=== PATIENT | female | born 1985 | race Caucasian/White ===

== ENCOUNTER 2018-02-10 17:25 | Inpatient (IN) ==
--- NOTE | 2018-02-10 18:54 | ED ---
History of Present Illness Primary Care Physician: NOT REQUIRED Chief Complaint: LOF History of Present Illness: Pt is a 32y/o G1 @ 38.5wks. She has PNC with Dr. Hernandez. She reports ROM at 16:15 today. Ctx started en route to hospital. No VB. +FM. She denies complications this preg. Weeks Gestation:: 38 Para: 0 : 1 - Inpatient Certification I certify that the inpatient services were ordered in accordance with Medicare regulations governing the order. This includes certification that hospital inpatient services are reasonable and necessary and in the case of services not specified as inpatient-only under 42 CFR 419.22(n), that they are appropriately provided as inpatient services in accordance to with the 2-midnight benchmark under 43 CFR 412.3(e) Review of Systems All other systems reviewed negative except as stated in HPI PMFSH - History History Provided By: Patient - Surgical History Surgical History: Surgical History (Last Updated 02/10/18 @ 18:51 by Dick Muñoz MD) History of breast augmentation - Tobacco History Second Hand Smoke Exposure: No Tobacco Use In Past 30 Days: No Smoking Status: Former smoker - Alcohol History How Often Do You Have a Drink Containing Alcohol: 2 to 4 times a month - Substance Use History Substance History: No History of Abuse - Travel History Recent Travel in the [place] Within the Last 8 Weeks: No Recent Travel Out of the Country Within the Last 8 Weeks: No - Immunization History Tetanus Immunization: Unsure Hx Influenza Vaccine This Season: No Medications and Allergies Active Medications: Active Medications Sodium Chloride (Ns Flush) 2 ml IV.FLUSH BID JANIA Sodium Chloride (Ns Flush) 2 ml IV.FLUSH PRN PRN PRN Reason: FLUSH AFTER USING IV ACCESS Allergies Allergy/AdvReac Type Severity Reaction Status Date / Time No Known Allergies Allergy Verified 02/10/18 17:54 Home Medications Medication Instructions Recorded Confirmed Type 1 tab PO DAILY 02/10/18 02/10/18 History ferrous sulfate [Iron (ferrous 325 mg PO DAILY 02/10/18 02/10/18 History sulfate)] Exam Vital signs: Vital Signs 02/10/18 17:52 02/10/18 18:00 Temperature 98.7 F Pulse Rate 60 Respiratory Rate 18 Blood Pressure 113/76 Intake & Output 02/09/18 02/10/18 02/10/18 18:59 06:59 18:59 Weight 70 kg Narrative: General: well developed, well nourished, no acute distress HEENT: normocephalic atraumatic, extraocular movements intact, neck supple Abdomen: soft, gravid, nontender, nondistended Uterus: fundus term Extremities: full range of motion Skin: normal coloration, no rashes, no suspicious skin lesions noted Neurologic: cranial nerves 2-12 grossly intact, normal muscle tone, normal gait Psychiatric: normal mood and affect, appropriate FHTs: 135, +accels, no decels, moderate variability, reactive Weems: irreg ctx q2-3m Cvx: /-1 Assessment and Plan - Diagnosis (1) 38 weeks gestation of Code(s): Z3A.38 - 38 weeks gestation of Status: Acute (2) PROM with onset of labor within 24 hours of rupture Code(s): O42.00 - Premature rupture of membranes, onset of labor within 24 hours of rupture, unspecified weeks of gestation Status: Acute - Plan 32y/o G1 @ 38.5wks with PROM and early labor. -- admit to L&D -- CLD, CEFM/toco, epidural/ortega PRN -- pitocin PRN -- GBS neg -- FHTs cat [address] Dr. Ferraro (cardiac catheterization technician) notified of pt status and agrees with POC. She will assume care of the pt. Courtesy orders placed. Discharge Plan - Discharge Disposition Patient Disposition: 30 Still Patient - Physicians Team ED Provider: Ryan Ramos Primary Care Provider: NOT REQUIRED,
[2018-02-10] MEDS ORDERED: Sod Chloride 0.9% Inj 1,000 ML IV.CONT PRN (18:57)
[2018-02-10] MEDS ORDERED: Oxytocin 30 Units/500ml Premix 30 UNITS/500 ML BAG IV.SIG ONE (18:57)
[2018-02-10] MEDS ORDERED: Naloxone Inj 0.4 MG/ML Vial IV.PUSH PRN (18:57)
[2018-02-10] MEDS ORDERED: Sodium Chlor 0.9% Inj 500 ML IV.SIG PRN (18:57)
[2018-02-10] MEDS ORDERED: fentaNYL Citrate Inj 100 MCG/2 ML Ampul IV.PUSH PRN ×2 (18:57)
[2018-02-10] MEDS ORDERED: Citric Acid/Sodium Citrate Liq 30 ML UDC PO SCH (19:00)
[2018-02-10 19:25] LABS: Amorphous Sediment,Urine Rare /hpf; Bacteria,Urine Rare /hpf; Bilirubin,Urine Negative (Negative); Clarity,Urine Clear (Clear); Color,Urine Straw (Yellw/Straw); Glucose,Urine (UA) Negative (Negative); Leukocyte Esterase,Urine Negative (Negative); Mucus,Urine Few /lpf (Occasional); Nitrite,Urine Negative (Negative); Specific Gravity,Urine 1.005 (1.002-1.035); Squamous Epithelial Cell,Urine 2 /hpf (0-5)
[2018-02-10] MEDS ORDERED: fentaNYL 2MCG-Bupiv 0.125% Epi 150 ML EPIDURAL ONE (19:29)
[2018-02-10 19:30] LABS: Amphetamine Urine With Conf Neg (Neg); Benzodiazepine Urine With Conf Neg (Neg)
[2018-02-10 19:40] LABS: Baso % (Auto) 0.4 % (0.0-2.0); Eos # (Auto) 0.1 th/mm3 (0.0-0.4); Eos % (Auto) 0.5 % (0.0-4.0); Hematocrit 42.6 % (35.0-46.0); Hemoglobin 14.4 gm/dL (11.6-15.3); Lymph % (Auto) 27.8 % (9.0-44.0); Mean Corpuscular HGB Conc 33.8 % (32.0-36.0); Mean Corpuscular Hemoglobin 29.9 pg (27.0-34.0); Mean Corpuscular Volume 88.5 fL (80.0-100.0); Mean Platelet Volume 11.1 fL (7.0-11.0); Mono # (Auto) 0.7 th/mm3 (0.0-0.9); Mono % (Auto) 6.7 % (0.0-8.0); Neut % (Auto) 64.6 % (16.0-70.0); Platelet Count 133 th/mm3 (150-450); Red Blood Count 4.81 mil/mm3 (4.00-5.30); Red Cell Distribution Width 13.4 % (11.6-17.2); White Blood Count 10.8 th/mm3 (4.0-11.0)
[2018-02-10] MEDS ORDERED: Lidocaine 1% Inj 50 ML Vial ONE (20:54)
[2018-02-10] MEDS ORDERED: fentaNYL 2MCG-Bupiv 0.125% Epi 150 ML EPIDURAL PRN (21:23)
[2018-02-10] MEDS ORDERED: fentaNYL Citrate Inj 100 MCG/2 ML Ampul EPIDURAL ONE (21:23)
[2018-02-11] MEDS ORDERED: Naloxone Inj 0.4 MG/ML Vial IV.PUSH PRN (03:36)
[2018-02-11] MEDS ORDERED: Bisacodyl 10 MG Supp RECTAL PRN (03:36)
[2018-02-11] MEDS ORDERED: Witch Hazel 50%/Glyderin 12.5% 40 Pad Jar RECTAL PRN (03:36)
[2018-02-11] MEDS ORDERED: Zolpidem Tartrate 5 MG Tablet PO PRN (03:36)
[2018-02-11] MEDS ORDERED: Benzocaine 20% Top Spray 60 ML Can TOPICAL PRN (03:36)
--- NOTE | 2018-02-11 03:38 | P.OBDELI ---
Weeks Gestation: 38 Patient Started Active Labor: Yes Medical Induction of Labor: No Artificial Rupture of Membrane: No Anesthesia: Epidural Episiotomy: none Vaginal Delivery: Normal Presentation: Occiput anterior Nuchal Cord: x1 Delayed Cord Clamping (45 sec): Yes Placenta: Spontaneous delivery, Intact, 3 vessel cord Laceration: 2 deg Repair: Chromic running Estimated blood loss (mL): 200 : Male (male 7 and 9 apgars with weight pending from [facility] with clear fluid and nuchal cord x 1 )
[2018-02-11 03:43] VITALS: RESP 20
[2018-02-11] MEDS ORDERED: Oxytocin 30 Units/500ml Premix 30 UNITS/500 ML BAG IV.CONT SCH (03:45)
[2018-02-11] MEDS: Senna/Docusate Sodium 8.6/50 MG Tablet PO SCH ×2 (08:53→22:14)
--- NOTE | 2018-02-11 11:34 | P.PNOB ---
Subjective Post day: 0 Interval history: sleeping quietly anticipates difficulty with nursing and desires loan consultant surgery on one breast. Objective Vital Signs/I&O: Vital Signs 02/10/18 17:52 02/10/18 18:00 02/10/18 19:20 Temperature 98.7 F 97.5 F L Pulse Rate 60 55 L Respiratory Rate 18 18 Blood Pressure 113/76 126/66 02/10/18 20:05 02/10/18 20:06 02/10/18 20:10 Temperature Pulse Rate 96 H 76 Respiratory Rate 18 Blood Pressure 127/60 117/57 L 02/10/18 20:39 02/10/18 20:45 02/10/18 21:05 Temperature 98.0 F Pulse Rate 82 67 Respiratory Rate Blood Pressure 101/52 L 114/45 L 02/10/18 21:10 02/10/18 21:21 02/10/18 21:35 Temperature Pulse Rate 60 61 72 Respiratory Rate 18 Blood Pressure 100/73 95/55 L 02/10/18 22:00 02/10/18 22:15 02/10/18 22:30 Temperature Pulse Rate 80 97 H 95 H Respiratory Rate 18 Blood Pressure 108/56 L 112/66 122/72 02/10/18 22:43 02/10/18 23:05 02/10/18 23:15 Temperature Pulse Rate 87 83 Respiratory Rate 18 Blood Pressure 110/78 123/62 02/10/18 23:18 02/10/18 23:30 02/11/18 00:00 Temperature 98.3 F Pulse Rate 96 H 99 H Respiratory Rate 18 18 Blood Pressure 123/63 131/96 H 02/11/18 00:10 02/11/18 00:20 02/11/18 00:30 Temperature Pulse Rate 85 93 H 74 Respiratory Rate Blood Pressure 120/58 L 102/65 02/11/18 00:45 02/11/18 00:52 02/11/18 00:53 Temperature 98.6 F Pulse Rate 77 Respiratory Rate 18 Blood Pressure 107/57 L 02/11/18 01:10 02/11/18 01:15 02/11/18 01:30 Temperature Pulse Rate 80 77 95 H Respiratory Rate Blood Pressure 114/58 L 111/65 119/58 L 02/11/18 01:45 02/11/18 02:00 02/11/18 02:04 Temperature Pulse Rate 85 68 Respiratory Rate 20 20 Blood Pressure 121/71 115/59 L 02/11/18 02:10 02/11/18 02:30 02/11/18 02:45 Temperature Pulse Rate 81 74 85 Respiratory Rate Blood Pressure 110/57 L 117/59 L 120/62 02/11/18 02:57 02/11/18 03:10 02/11/18 03:24 Temperature 98.8 F Pulse Rate 83 114 H Respiratory Rate 20 20 Blood Pressure 125/72 135/88 02/11/18 03:30 02/11/18 03:46 02/11/18 04:00 Temperature 98.9 F Pulse Rate 111 H 90 Respiratory Rate 20 18 Blood Pressure 142/68 H 127/68 02/11/18 04:01 02/11/18 04:12 02/11/18 04:30 Temperature Pulse Rate 81 81 Respiratory Rate 18 18 Blood Pressure 120/57 L 110/66 02/11/18 05:00 02/11/18 05:01 02/11/18 05:30 Temperature Pulse Rate 62 Respiratory Rate 18 18 Blood Pressure 115/57 L 02/11/18 05:45 02/11/18 08:50 Temperature 98.2 F Pulse Rate 66 57 L Respiratory Rate 18 18 Blood Pressure 119/62 118/57 L Intake & Output 02/10/18 02/11/18 02/11/18 18:59 06:59 18:59 Weight 70 kg Result Diagrams: 02/10/18 18:50 Objective Remarks: GENERAL: Well-nourished, well-developed patient. CARDIOVASCULAR: Regular rate and rhythm without murmurs, gallops, or rubs. RESPIRATORY: Breath sounds equal bilaterally. No accessory muscle use. ABDOMEN/GI: Abdomen soft, non-tender. Fundus: Firm, non-tender at umbilicus. GENITOURINARY: Light to moderate bleeding. EXTREMITIES: No cyanosis or edema, non-tender, without signs of DVT. Medications and IVs: Active Medications Acetaminophen (Tylenol) 650 mg PO Q4H PRN PRN Reason: PAIN SCALE 1 TO 2 Al Hydroxide/Mg Hydroxide (Milk Of Magnesia Liq) 30 ml PO Q12H PRN PRN Reason: Mild Constipation Benzocaine (Americaine 20% Top [place]) 1 spray TOPICAL Q4H PRN PRN Reason: For Perineum Discomfort Last Admin: 02/11/18 08:54 Dose: 1 spray Bisacodyl (Dulcolax Supp) 10 mg RECTAL DAILY PRN PRN Reason: SEVERE CONSITIPATION Citric Acid/Sodium Citrate (Sodium Citrate/Citric Acid Liq) 30 ml PO PROJECT SPECIALIST [facility] Stop: 02/14/18 18:59 Diphtheria/Pertussis/Tetanus Vacc (Boostrix Vaccine Inj) 0.5 ml IM .ONCE ONE Stop: 02/11/18 16:01 Ephedrine Sulfate (Ephedrine/Ns Syringe) 10 mg IV.PUSH UNSCH PRN PRN Reason: SEE LABEL COMMENTS Stop: 02/11/18 21:23 Fentanyl Citrate (Fentanyl Inj) 50 mcg IV.PUSH Q1H PRN PRN Reason: Pain Scale 3 - 5 Fentanyl Citrate (Fentanyl Inj) 100 mcg IV.PUSH Q1H PRN PRN Reason: PAIN SCALE 6 TO 10 Lactated Ringer's (Lr 1000 Ml Inj) 1,000 mls @ 125 mls/hr IV.CONT .Q8H [facility] Last Admin: 02/10/18 20:49 Dose: 125 mls/hr Lactated Ringer's (Lr 1000 Ml Inj) 1,000 mls @ 3,000 mls/hr IV.SIG UNSCH PRN PRN Reason: compromise or epidural Last Admin: 02/10/18 20:48 Dose: 3,000 mls/hr Sodium Chloride (Ns Inj) 500 mls @ 1,000 mls/hr IV.SIG UNSCH PRN PRN Reason: SEE LABEL COMMENTS Sodium Chloride (Ns Inj) 1,000 mls @ 100 mls/hr IV.CONT .Q10H PRN PRN Reason: SEE LABEL COMMENTS Fentanyl/Bupivacaine/Sodium Chlor (Fentanyl 2 Mcg-Bupiv 0.125% Epi) 150 mls @ 12 mls/hr EPIDURAL PRN PRN PRN Reason: for Labor Pain Ibuprofen (Motrin) 800 mg PO Q8H PRN PRN Reason: For cramping Lactulose (Lactulose Liq) 30 ml PO DAILY PRN PRN Reason: SEVERE CONSITIPATION Lidocaine HCl (Xylocaine 1% Inj) 0.1 ml I-DERMAL PRN PRN PRN Reason: For IV start Stop: 02/13/18 18:56 Lidocaine HCl (Xylocaine 1% Inj) 10 ml INFILTRATN PRN PRN PRN Reason: For episiotomy repair Stop: 02/12/18 18:56 Measles/Mumps/Rubella Vaccine Live (M-M-R Ii Vaccine Inj) 0.5 ml SQ .ONCE ONE Stop: 02/11/18 16:01 Mineral Oil (Muri-Lube Oil) 10 ml TOPICAL PRN PRN PRN Reason: PRN perineal massage Miscellaneous Information (Misc Information) 1 each OTHER UNSCH PRN PRN Reason: SEE LABEL COMMENTS Stop: 02/11/18 21:23 Miscellaneous Information (Misc Information) 1 each OTHER UNSCH PRN PRN Reason: SEE LABEL COMMENTS Stop: 02/11/18 21:23 Naloxone HCl (Narcan Inj) 0.1 mg IV.PUSH Q2M PRN PRN Reason: for opiate reversal Naloxone HCl (Narcan Inj) 0.1 mg IV.PUSH Q2M PRN PRN Reason: for opiate reversal Ondansetron HCl (Zofran Odt) 4 mg PO Q6H PRN PRN Reason: NAUSEA OR VOMITING Senna/Docusate Sodium (Hillary-Colace) 1 tab PO BID JANIA Last Admin: 02/11/18 08:53 Dose: 1 tab Sennosides (Senokot) 17.2 mg PO Q12H PRN PRN Reason: Moderate Constipation Sodium Chloride (Ns Flush) 2 ml IV.FLUSH BID JANIA Sodium Chloride (Ns Flush) 2 ml IV.FLUSH PRN PRN PRN Reason: FLUSH AFTER USING IV ACCESS Sodium Chloride (Ns Flush) 2 ml IV.FLUSH BID JANIA Sodium Chloride (Ns Flush) 2 ml IV.FLUSH PRN PRN PRN Reason: FLUSH AFTER USING IV ACCESS Witch Sunshine/Glycerin (Tucks Pads) 1 applicatio RECTAL QID PRN PRN Reason: HEMORRHOIDS Last Admin: 02/11/18 08:53 Dose: 1 applicatio Zolpidem Tartrate (Ambien) 5 mg PO HS PRN PRN Reason: SLEEP Assessment and Plan - Plan routine care discharge on PPD 1 or 2
[2018-02-11] MEDS: Ibuprofen 400 MG Tablet PO PRN ×2 (13:56→22:15)
[2018-02-11] MEDS: Acetaminophen 325 MG Tablet PO PRN ×2 (13:57→22:14)
[2018-02-11] MEDS ORDERED: Diphtheria/Tetanus/Pertussis Vaccine Inj 0.5 ML Syringe IM ONE (16:00)
[2018-02-11] MEDS ORDERED: Measles/Mumps/Rubella Vaccine Inj 0.5 ML Vial SQ ONE (16:00)
[2018-02-12] MEDS: Ibuprofen 400 MG Tablet PO PRN ×2 (06:12→16:31)
[2018-02-12] MEDS: Acetaminophen 325 MG Tablet PO PRN ×2 (06:13→16:32)
[2018-02-12] MEDS: Senna/Docusate Sodium 8.6/50 MG Tablet PO SCH (10:44)
--- NOTE | 2018-02-12 13:26 | P.PNOB ---
Subjective Post day: 1 Objective Vital Signs/I&O: Vital Signs 02/11/18 21:15 02/12/18 08:00 Temperature 97.9 F 97.8 F Pulse Rate 68 59 L Respiratory Rate 17 18 Blood Pressure 103/61 109/58 L Result Diagrams: 02/10/18 18:50 Objective Remarks: GENERAL: Well-nourished, well-developed patient. CARDIOVASCULAR: Regular rate and rhythm without murmurs, gallops, or rubs. RESPIRATORY: Breath sounds equal bilaterally. No accessory muscle use. ABDOMEN/GI: Abdomen soft, non-tender. Fundus: Firm, non-tender at umbilicus. GENITOURINARY: Light to moderate bleeding. EXTREMITIES: No cyanosis or edema, non-tender, without signs of DVT. Medications and IVs: Active Medications Acetaminophen (Tylenol) 650 mg PO Q4H PRN PRN Reason: PAIN SCALE 1 TO 2 Last Admin: 02/12/18 06:13 Dose: 650 mg Al Hydroxide/Mg Hydroxide (Milk Of Magnesia Liq) 30 ml PO Q12H PRN PRN Reason: Mild Constipation Benzocaine (Americaine 20% Top [place]) 1 spray TOPICAL Q4H PRN PRN Reason: For Perineum Discomfort Last Admin: 02/11/18 08:54 Dose: 1 spray Bisacodyl (Dulcolax Supp) 10 mg RECTAL DAILY PRN PRN Reason: SEVERE CONSITIPATION Citric Acid/Sodium Citrate (Sodium Citrate/Citric Acid Liq) 30 ml PO JOB HAND [facility] Stop: 02/14/18 18:59 Fentanyl Citrate (Fentanyl Inj) 50 mcg IV.PUSH Q1H PRN PRN Reason: Pain Scale 3 - 5 Fentanyl Citrate (Fentanyl Inj) 100 mcg IV.PUSH Q1H PRN PRN Reason: PAIN SCALE 6 TO 10 Lactated Ringer's (Lr 1000 Ml Inj) 1,000 mls @ 125 mls/hr IV.CONT .Q8H [facility] Last Admin: 02/10/18 20:49 Dose: 125 mls/hr Lactated Ringer's (Lr 1000 Ml Inj) 1,000 mls @ 3,000 mls/hr IV.SIG UNSCH PRN PRN Reason: compromise or epidural Last Admin: 02/10/18 20:48 Dose: 3,000 mls/hr Sodium Chloride (Ns Inj) 500 mls @ 1,000 mls/hr IV.SIG UNSCH PRN PRN Reason: SEE LABEL COMMENTS Sodium Chloride (Ns Inj) 1,000 mls @ 100 mls/hr IV.CONT .Q10H PRN PRN Reason: SEE LABEL COMMENTS Fentanyl/Bupivacaine/Sodium Chlor (Fentanyl 2 Mcg-Bupiv 0.125% Epi) 150 mls @ 12 mls/hr EPIDURAL PRN PRN PRN Reason: for Labor Pain Ibuprofen (Motrin) 800 mg PO Q8H PRN PRN Reason: For cramping Last Admin: 02/12/18 06:12 Dose: 800 mg Lactulose (Lactulose Liq) 30 ml PO DAILY PRN PRN Reason: SEVERE CONSITIPATION Lidocaine HCl (Xylocaine 1% Inj) 0.1 ml I-DERMAL PRN PRN PRN Reason: For IV start Stop: 02/13/18 18:56 Lidocaine HCl (Xylocaine 1% Inj) 10 ml INFILTRATN PRN PRN PRN Reason: For episiotomy repair Stop: 02/12/18 18:56 Mineral Oil (Muri-Lube Oil) 10 ml TOPICAL PRN PRN PRN Reason: PRN perineal massage Naloxone HCl (Narcan Inj) 0.1 mg IV.PUSH Q2M PRN PRN Reason: for opiate reversal Naloxone HCl (Narcan Inj) 0.1 mg IV.PUSH Q2M PRN PRN Reason: for opiate reversal Ondansetron HCl (Zofran Odt) 4 mg PO Q6H PRN PRN Reason: NAUSEA OR VOMITING Senna/Docusate Sodium (Hillary-Colace) 1 tab PO BID JANIA Last Admin: 02/12/18 10:44 Dose: 1 tab Sennosides (Senokot) 17.2 mg PO Q12H PRN PRN Reason: Moderate Constipation Sodium Chloride (Ns Flush) 2 ml IV.FLUSH BID JANIA Sodium Chloride (Ns Flush) 2 ml IV.FLUSH PRN PRN PRN Reason: FLUSH AFTER USING IV ACCESS Sodium Chloride (Ns Flush) 2 ml IV.FLUSH BID JANIA Sodium Chloride (Ns Flush) 2 ml IV.FLUSH PRN PRN PRN Reason: FLUSH AFTER USING IV ACCESS Witch Sunshine/Glycerin (Tucks Pads) 1 applicatio RECTAL QID PRN PRN Reason: HEMORRHOIDS Last Admin: 02/11/18 08:53 Dose: 1 applicatio Zolpidem Tartrate (Ambien) 5 mg PO HS PRN PRN Reason: SLEEP Assessment and Plan - Plan pt doing well going well bonding with infant pain well managed with oral medications routine care Discharge Planning: will dc home tomorrow
--- NOTE | 2018-02-12 13:31 | P.DS ---
Date of admission: 02/10/18 18:04 Primary care physician: NOT REQUIRED Anticipated date of discharge: 02/13/18 Brief History from admission: 38 week SROM labor routine care DS: Medications - Discharge Medications Prescriptions: oxycodone-acetaminophen 1 tab PO Q4H PRN #10 tab PRN Reason: Pain, Moderate DS: Summary Hospital Course: term SROM Routine care - Time Spent with Patient Total time spent providing and/or coordinating discharge services: Less than 30 minutes Exam Vital signs: Vital Signs 02/11/18 21:15 02/12/18 08:00 Temperature 97.9 F 97.8 F Pulse Rate 68 59 L Respiratory Rate 17 18 Blood Pressure 103/61 109/58 L Narrative: see post note Results Procedures completed during hospitalization: Discharge Plan - Discharge Disposition Patient Disposition: 01 Discharge Home - Discharge Condition Condition: Good - Discharge Order Discharge Orders: Discharge Order (Routine); Ordered 02/12/18 Ordered By: Marlene Lyman HOME OFFICE CLAIM SPECIALIST Clear for Discharge (Routine); Ordered 02/13/18 Ordered By: Marlene Lyman - Physicians Team Primary Care Provider: NOT REQUIRED, Attending Provider: Jolly Ferraro
[2018-02-13] MEDS: Acetaminophen 325 MG Tablet PO PRN (00:36)
[2018-02-13] MEDS: Ibuprofen 400 MG Tablet PO PRN ×2 (00:36→09:37)
[2018-02-13] MEDS: Senna/Docusate Sodium 8.6/50 MG Tablet PO SCH ×2 (01:54→09:38)
--- NOTE | 2018-02-13 13:39 | P.PNOB ---
Subjective Post day: 2 Objective Vital Signs/I&O: Vital Signs 02/12/18 20:20 02/13/18 08:52 02/13/18 10:55 Temperature 98.0 F 98.4 F Pulse Rate 64 76 70 Respiratory Rate 18 20 Blood Pressure 112/58 L 100/55 L 105/62 Result Diagrams: 02/10/18 18:50 Objective Remarks: GENERAL: Well-nourished, well-developed patient. CARDIOVASCULAR: Regular rate and rhythm without murmurs, gallops, or rubs. RESPIRATORY: Breath sounds equal bilaterally. No accessory muscle use. ABDOMEN/GI: Abdomen soft, non-tender. Fundus: Firm, non-tender at umbilicus. GENITOURINARY: Light to moderate bleeding. EXTREMITIES: No cyanosis or edema, non-tender, without signs of DVT. Medications and IVs: Active Medications Acetaminophen (Tylenol) 650 mg PO Q4H PRN PRN Reason: PAIN SCALE 1 TO 2 Last Admin: 02/13/18 00:36 Dose: 650 mg Al Hydroxide/Mg Hydroxide (Milk Of Magnesia Liq) 30 ml PO Q12H PRN PRN Reason: Mild Constipation Benzocaine (Americaine 20% Top [place]) 1 spray TOPICAL Q4H PRN PRN Reason: For Perineum Discomfort Last Admin: 02/11/18 08:54 Dose: 1 spray Bisacodyl (Dulcolax Supp) 10 mg RECTAL DAILY PRN PRN Reason: SEVERE CONSITIPATION Citric Acid/Sodium Citrate (Sodium Citrate/Citric Acid Liq) 30 [facility] Stop: 02/14/18 18:59 Fentanyl Citrate (Fentanyl Inj) 50 mcg IV.PUSH Q1H PRN PRN Reason: Pain Scale 3 - 5 Fentanyl Citrate (Fentanyl Inj) 100 mcg IV.PUSH Q1H PRN PRN Reason: PAIN SCALE 6 TO 10 Lactated Ringer's (Lr 1000 Ml Inj) 1,000 mls @ 125 mls/hr IV.CONT .Q8H [facility] Last Admin: 02/10/18 20:49 Dose: 125 mls/hr Lactated Ringer's (Lr 1000 Ml Inj) 1,000 mls @ 3,000 mls/hr IV.SIG UNSCH PRN PRN Reason: compromise or epidural Last Admin: 02/10/18 20:48 Dose: 3,000 mls/hr Sodium Chloride (Ns Inj) 500 mls @ 1,000 mls/hr IV.SIG UNSCH PRN PRN Reason: SEE LABEL COMMENTS Sodium Chloride (Ns Inj) 1,000 mls @ 100 mls/hr IV.CONT .Q10H PRN PRN Reason: SEE LABEL COMMENTS Fentanyl/Bupivacaine/Sodium Chlor (Fentanyl 2 Mcg-Bupiv 0.125% Epi) 150 mls @ 12 mls/hr EPIDURAL PRN PRN PRN Reason: for Labor Pain Ibuprofen (Motrin) 800 mg PO Q8H PRN PRN Reason: For cramping Last Admin: 02/13/18 09:37 Dose: 800 mg Lactulose (Lactulose Liq) 30 ml PO DAILY PRN PRN Reason: SEVERE CONSITIPATION Lidocaine HCl (Xylocaine 1% Inj) 0.1 ml I-DERMAL PRN PRN PRN Reason: For IV start Stop: 02/13/18 18:56 Mineral Oil (Muri-Lube Oil) 10 ml TOPICAL PRN PRN PRN Reason: PRN perineal massage Naloxone HCl (Narcan Inj) 0.1 mg IV.PUSH Q2M PRN PRN Reason: for opiate reversal Naloxone HCl (Narcan Inj) 0.1 mg IV.PUSH Q2M PRN PRN Reason: for opiate reversal Ondansetron HCl (Zofran Odt) 4 mg PO Q6H PRN PRN Reason: NAUSEA OR VOMITING Oxycodone/Acetaminophen (Percocet 5/325 Mg) 1 tab PO Q4H PRN PRN Reason: PAIN SCALE 6 TO 10 Last Admin: 02/13/18 09:40 Dose: 1 tab Senna/Docusate Sodium (Hillary-Colace) 1 tab PO BID JANIA Last Admin: 02/13/18 09:38 Dose: 1 tab Sennosides (Senokot) 17.2 mg PO Q12H PRN PRN Reason: Moderate Constipation Sodium Chloride (Ns Flush) 2 ml IV.FLUSH BID JANIA Sodium Chloride (Ns Flush) 2 ml IV.FLUSH PRN PRN PRN Reason: FLUSH AFTER USING IV ACCESS Sodium Chloride (Ns Flush) 2 ml IV.FLUSH BID JANIA Sodium Chloride (Ns Flush) 2 ml IV.FLUSH PRN PRN PRN Reason: FLUSH AFTER USING IV ACCESS Witch Sunshine/Glycerin (Tucks Pads) 1 applicatio RECTAL QID PRN PRN Reason: HEMORRHOIDS Last Admin: 02/11/18 08:53 Dose: 1 applicatio Zolpidem Tartrate (Ambien) 5 mg PO HS PRN PRN Reason: SLEEP Assessment and Plan - Plan pt doing well and using supplements bonding with pain well managed with oral medications routine care Discharge Planning: dc home today
[2018-02-13 19:53] VITALS: BP 105/62; PULSE 70; TEMP 98.4
== END 2018-02-13 16:03 | disposition home or self-care (01) ==
LOC: HOBED 17:25 → H2E 18:04 → H1EA 02-11 06:25
PROVIDERS: ADMIT Obstetrics & Gynecology; ATTEND Obstetrics & Gynecology